=== PATIENT | male | born 1985 | race Caucasian/White ===

== ENCOUNTER → 2020-06-01 | Outpatient (CLI) | payer SELFPAY | LOC: M LABSMTC 13:24 | PROVIDERS: ATTEND Pediatrics | DX: Z11.52 Encounter for screening for COVID-19 (principal) ==

== ENCOUNTER → 2024-09-14 | Outpatient (CLI) | payer BC | LOC: M SLEEP HO 10:29 | PROVIDERS: ATTEND Physician Assistant | DX: R06.83 Snoring (principal); G47.30 Sleep apnea, unspecified ==